=== PATIENT | male | born 1965 | race Caucasian/White ===

== ENCOUNTER 2018-08-01 16:25 | Emergency (ER) | payer BC ==
[2018-08-01 16:32] VITALS: BP 115/82; PULSE 87; TEMP 97; BMI 25.1
[2018-08-01] MEDS ORDERED: ACETAMINOPHEN 325 MG TABLET (FP) PO ONE (18:28)
[2018-08-01] MEDS ORDERED: TETANUS AND DIPHTHERIA TOXOID 0.5 ML DISP.SYRIN IM ONE (18:29)
--- NOTE | 2018-08-01 19:21 | PDOC ---
History of Present Illness - General Chief Complaint: Injury Stated Complaint: fell down bump head,pain shoulder Time Seen by Provider: 08/01/18 18:18 History Source: Patient, Spouse Exam Limitations: No Limitations - History of Present Illness Initial Comments: 08/01/18 19:15 52 yo M w/ no sig PMHx comes in c/o R shoulder, L elbow pain s/p trip and fall this afternoon at home while trying to avoid stepping on his cat. He tumbled down the stairs, hit his head, no LOC, no headache, no dizziness,no neck pain, no neck stiffness, no chest pain, no nausea, no vomiting, no pain anywhere else. Pt admits to having one drink prior to falling (2 drinks as per ). Tetanus status unknown. Pt not on anticoagulation. 08/01/18 19:25 Past History - Past Medical History Allergies/Adverse Reactions: Allergies Allergy/AdvReac Type Severity Reaction Status Date / Time No Known Allergies Allergy Verified 08/01/18 16:31 Home Medications: Ambulatory Orders Amlodipine Besylate [Norvasc -] 5 mg PO DAILY 01/30/13 Atorvastatin Ca [Lipitor] 20 mg PO HS 01/30/13 COPD: No HTN: Yes Hypercholesterolemia: Yes - Suicide/Smoking/Psychosocial Hx Smoking Status: Yes Smoking History: Current every day smoker Have you smoked in the past 12 months: Yes Number of Cigarettes Smoked Daily: 40 Information on smoking cessation initiated: No 'Breaking Loose' booklet given: 01/31/13 Hx Alcohol Use: Yes Drug/Substance Use Hx: No Substance Use Type: None Hx Substance Use Treatment: No Review of Systems - Review of Systems Able to Perform ROS?: Yes Constitutional: No: Chills, Fever, Malaise, Night Sweats HEENTM: No: Eye Pain, Recent change in vision, Throat Pain Respiratory: No: Cough, Shortness of Breath Cardiac (ROS): No: Chest Pain, Palpitations, Chest Tightness ABD/GI: No: Diarrhea, Nausea, Vomiting, Abdominal cramping : No: Dysuria, Hematuria Musculoskeletal: No: Back Pain Integumentary: No: Rash Neurological: No: Headache, Numbness, Dizziness Psychiatric: No: Change in Appetite Endocrine: No: Unexplained Weight Loss *Physical Exam - Vital Signs Last Vital Signs Temp Pulse Resp BP Pulse Ox 97 F L 87 18 115/82 99 08/01/18 16:27 08/01/18 16:27 08/01/18 16:27 08/01/18 16:27 08/01/18 16:27 - Physical Exam General Appearance: Yes: Nourished. No: Apparent Distress HEENT: positive: CHUN, Normal ENT Inspection, Normal Voice, Other ((+)R posterior parietal hematoma, no skin breaks, no racoon/clemente sign, no hemotympanum). negative: Pale Conjunctivae, Scleral Icterus (R), Scleral Icterus (L) Neck: positive: Supple. negative: Tender, Decreased range of motion, Tender midline Respiratory/Chest: positive: Lungs Clear, Normal Breath Sounds. negative: Respiratory Distress, Accessory Muscle Use Cardiovascular: positive: Regular Rhythm, Regular Rate Comments:: 08/01/18 19:23 Neuro exam A+Ox3 (person, place, time), normal sensorium. Visual mills: full to confrontation. Pupils: equal, round, and reactive to light. EOM: intact and smooth pursuit. No nystagmus. Sensation: V1, V2, and V3 normal b/l Facial strength: facial expression, shoulder shrug, and head turn normal. Hearing: grossly intact b/l Mouth: tongue protrudes midline and moves Left/Right equal b/l. Uvula rises symmetrically. Motor: UE and LE 5/5 diffusely. Sensation: light touch and pinprick WNL. Cerebellum: Srlrlw-pkfm-pcrije normal without dysmetria or intention tremor. Qimm-iy-balk wnl. No dysdiadodyskinesia. Gait: unassisted, steady, Romberg negative, and heel-walk normal. No atalgia, difficulty in ambulation or ataxia. no clinical signs of intoxication Gastrointestinal/Abdominal: positive: Normal Bowel Sounds, Soft. negative: Tender Musculoskeletal: positive: Normal Inspection, Other (R shoulder with mild tendenress diffusely (non focal), no assymetry, FROM, 5/5 strength, good cap refill. Upper extremities with good cap refill, equal pulses, good weapons and tactics instructor, no weakness. L elbow with mild abrasions, no bony tenderness, FROM, 5/5 strength, good distal pulse.). negative: CVA Tenderness, Decreased Range of Motion Extremity: positive: Normal Capillary Refill, Normal Inspection, Normal Range of Motion. negative: Tender, Pedal Edema Integumentary: positive: Normal Color, Dry. negative: Jaundice, Rash Moderate Sedation - Procedure Monitoring Vital Signs: Procedure Monitoring Vital Signs Temperature 97 F L 08/01/18 16:27 Pulse Rate 87 08/01/18 16:27 Respiratory Rate 18 08/01/18 16:27 Blood Pressure 115/82 08/01/18 16:27 O2 Sat by Pulse Oximetry (%) 99 08/01/18 16:27 ED Treatment Course - RADIOLOGY Radiology Studies Ordered: Category Date Time Status HEAD CT WITHOUT CONTRAST [CT] Stat CT Scan 08/01/18 18:29 Ordered SHOULDER-RIGHT [RAD] Stat Radiology 08/01/18 18:28 Taken Medical Decision Making - Medical Decision Making 08/01/18 19:24 52 yo M w/ R shoulder pain s/p trip and fall after having 2 drinks, not on ACs, no LOC, (+)scalp hematoma. NO clinical signs of intoxication now. WIll do head CT, R shoulder xray, give tetanus and reassess Tylenol ordered for pain Change of shift, care of patient signed over to SHERRY Amin who will reassess patient, follow up xrays/CT and decide on dispo plan *DC/Admit/Observation/Transfer Diagnosis at time of Disposition: Fall Qualifiers: Encounter type: initial encounter Qualified Code(s): W19.XXXA - Unspecified fall, initial encounter Shoulder injury Qualifiers: Encounter type: initial encounter Laterality: right Qualified Code(s): S49.91XA - Unspecified injury of right shoulder and upper arm, initial encounter - Referrals - Patient Instructions - Post Discharge Activity
--- NOTE | 2018-08-01 20:02 | PDOC ---
*Physical Exam - Vital Signs Last Vital Signs Temp Pulse Resp BP Pulse Ox 97 F L 87 18 115/82 99 08/01/18 16:27 08/01/18 16:27 08/01/18 16:27 08/01/18 16:27 08/01/18 16:27 Medical Decision Making - Medical Decision Making 08/01/18 20:01 Endorsed to me to follow labs and disposition 08/01/18 21:03 Patient Full Name: ALEXA PEREA Patient Accession No: [id number] Patient : [id number] Reason for Exam: HEAD INJURY Referring Physician: JENN RICK Patient Name: BRIT LIU THIS IS A PRELIMINARY REPORT FROM [facility] DATE OF SERVICE: 2018-08-01 20:08:28 IMAGES: 142 Exam: CT head without IV contrast. Clinical indication:Head injury. Comparison:None available. Technique: Axial unenhanced CT images from the skull base through the brain were obtained followed by coronal and sagital reformats. Findings: The visualized bony structures are unremarkable. There are soft tissue changes within the left maxillary sinus consistent with left maxillary sinusitis. There is some incomplete circumferential mucosal thickening within the right maxillary sinus suggesting chronic sinusitis. Otherwise, the visualized paranasal sinuses and mastoid air cells are clear. There is no evidence of intra-or extra-axial hemorrhage. The ventricles and basilar cisterns are unremarkable. There is no evidence of intracranial mass, acute infarct, or midline shift. Impression: 1. Findings consistent with maxillary sinusitis. 2. Otherwise, negative unenhanced CT of the brain. One or more of the following dose reduction techniques were used: automated exposure control, adjustment of the mA and/or kV according to patient size, use of iterative reconstructive technique. THIS DOCUMENT HAS BEEN ELECTRONICALLY SIGNED Vargas Keenan MD 08/01/2018 19:48 EST M.D. Please call [facility] [phone] ([phone]) with questions. INTERPRETING RADIOLOGIST: Vargas Keenan MD Electronically Signed: Aug 01, 2018 08:49PM EST shoulder xray with no acute finding. I discussed the physical exam findings, ancillary test results and final diagnoses with the patient. I answered all of the patient's questions. The patient was satisfied with the care received and felt comfortable with the discharge plan and treatment plan. The Patient agrees to follow up with the primary care physician within 24-72 hours. *DC/Admit/Observation/Transfer Diagnosis at time of Disposition: Fall Qualifiers: Encounter type: initial encounter Qualified Code(s): W19.XXXA - Unspecified fall, initial encounter Shoulder injury Qualifiers: Encounter type: initial encounter Laterality: right Qualified Code(s): S49.91XA - Unspecified injury of right shoulder and upper arm, initial encounter Closed head injury Qualifiers: Encounter type: initial encounter Qualified Code(s): S09.90XA - Unspecified injury of head, initial encounter - Discharge Dispostion Disposition: HOME Condition at time of disposition: Stable - Referrals Referrals: Earl Gutierrez DO [Staff Physician] - Manohar Sweet MD [Staff Physician] - - Patient Instructions Printed Discharge Instructions: How to Use a Sling, DI for Closed Head Injury, DI for Shoulder Pain Additional Instructions: Your Discharge Instructions: You must call primary care physician within 24 hours to arrange follow-up. Return to the Emergency Department with any new, persistent or worsening symptoms, for fever, chills, SOB, dizziness or any other concerning changes that may occur.Follow up with orthopedists. - Post Discharge Activity Forms/Work/School Notes: Back to Work
[2018-08-01] MEDS ORDERED: ACETAMINOPHEN 325 MG TABLET (FP) ONE (20:24)
[2018-08-01] MEDS ORDERED: DIPHTH,PERTUSS(ACELL),TET 0.5 ML DISP.SYRIN IM ONE (20:25)
== END 2018-08-01 21:34 | disposition home or self-care (01) ==
LOC: JER 16:25
DX: W10.8XXA Fall (on) (from) other stairs and steps, initial encounter (principal); Y93.89 Activity, other specified; Y92.018 Other place in single-family (private) house as the place of occurrence of the external cause; Y99.8 Other external cause status
CPT/HCPCS: 70450-TC; 73030-TC-RT-FY; 99281-25

== ENCOUNTER 2018-08-25 19:46 | Inpatient (IN) | payer BC ==
[2018-08-25 19:54] VITALS: BMI 25.0
[2018-08-25] MEDS ORDERED: LORazepam 2 MG/ML SDV VIAL ONE (20:12)
[2018-08-25 20:24] LABS: BASO % 0.9 % (0-2.0); EOS % 0.9 % (0-4.5); HEMATOCRIT 34.9 % (35.4-49); HEMOGLOBIN 12.3 GM/dL (11.7-16.9); LYMPH % 20.2 % (8-40); MCH 36.7 pg (25.7-33.7); MCHC 35.3 g/dl (32.0-35.9); MEAN PLT VOLUME 7.8 fl (7.5-11.1); MONO % 8.8 % (3.8-10.2); NEUT % 69.2 % (42.8-82.8); PLATELET COUNT 109 K/MM3 (134-434); RBC 3.35 M/mm3 (4.00-5.60); RDW 14.7 % (11.9-15.9); WHITE BLOOD COUNT 4.7 K/mm3 (4.0-10.0)
[2018-08-25] MEDS ORDERED: FOLIC ACID INJECTION - 1 MG, THIAMINE HCL 100 MG, MULTIVIT INJECTION ADULT 10 ML in SOD... IVPB ONE (20:35)
--- NOTE | 2018-08-25 20:35 | PDOC ---
History of Present Illness - General Chief Complaint: Altered Mental Status Stated Complaint: AMS Time Seen by Provider: 08/25/18 19:52 History Source: Family Exam Limitations: No Limitations - History of Present Illness Initial Comments: 08/25/18 20:35 52 year old man with a history of HLD, alcohol abuse (drinks 5 gin and tonics every day), alcohol withdrawal seizure x2 (4-5 days ago) and fall with head and L shoulder injury (3 weeks ago) who presents with episode of altered mental status just prior to arrival. The patient's came home and found the patient in the bathroom holding onto something and his hands were shaking. The patient was unresponsive to and she moved him out of the bathroom, however that patient hand's were still shaking and he was unreponsive and nonverbal until EMS arrived. The patient has pain medications as prescribed for recent fall but denies any recreational drug use, or prescription drug use. The patient denies any recent illness, n/v/d/c, abdominal pain, chest pain or shortness. notes that the patient has not been able to work for the past 3 weeks due to fall and injury and has been feeling more depressed and drinking more alcohol. Past History - Past Medical History Allergies/Adverse Reactions: Allergies Allergy/AdvReac Type Severity Reaction Status Date / Time No Known Allergies Allergy Verified 08/25/18 19:51 Home Medications: Ambulatory Orders Amlodipine Besylate [Norvasc -] 5 mg PO DAILY 01/30/13 Atorvastatin Ca [Lipitor] 20 mg PO HS 01/30/13 COPD: No HTN: Yes Hypercholesterolemia: Yes - Suicide/Smoking/Psychosocial Hx Smoking Status: Yes Smoking History: Never smoked Have you smoked in the past 12 months: No Number of Cigarettes Smoked Daily: 40 Information on smoking cessation initiated: No 'Breaking Loose' booklet given: 01/31/13 Hx Alcohol Use: No Drug/Substance Use Hx: No Substance Use Type: None Hx Substance Use Treatment: No *Physical Exam - Vital Signs Last Vital Signs Temp Pulse Resp BP Pulse Ox 97.9 F 112 H 16 150/87 96 08/25/18 19:51 08/25/18 19:51 08/25/18 19:51 08/25/18 19:51 08/25/18 19:51 - Physical Exam Comments: 08/25/18 22:22 GENERAL: At bedside the patient has leftward head turning and gaze preference, slow to respond but able to follow commands. Patient AOx2 HEAD: No signs of trauma, normocephalic, atraumatic EYES: pupils 2mm, sluggishly reactive to light, EOMI, sclera anicteric, conjunctiva clear ENT: oropharynx clear without exudates. Moist mucosa NECK: Normal ROM, supple LUNGS: No distress, speaks full sentences, clear to auscultation bilaterally HEART: Regular rate and rhythm, normal S1 and S2, no murmurs, rubs or gallops, peripheral pulses normal and equal bilaterally. ABDOMEN: Soft, nontender, normoactive bowel sounds. No guarding, no rebound. No masses EXTREMITIES : Normal inspection, Normal range of motion, no edema. No clubbing or cyanosis. NEUROLOGICAL: Cranial nerves II through XII grossly intact. Normal speech, normal gait, no focal sensorimotor deficits SKIN: Warm, Dry, normal turgor, no rashes or lesions noted Moderate Sedation - Procedure Monitoring Vital Signs: Procedure Monitoring Vital Signs Temperature 97.9 F 08/25/18 19:51 Pulse Rate 112 H 08/25/18 19:51 Respiratory Rate 16 08/25/18 19:51 Blood Pressure 150/87 08/25/18 19:51 O2 Sat by Pulse Oximetry (%) 96 08/25/18 19:51 ED Treatment Course - LABORATORY CBC & Chemistry Diagram: 08/25/18 20:00 08/25/18 20:01 - ADDITIONAL ORDERS Additional order review: Laboratory Results 08/25/18 20:13 POC Glucometer 128 08/25/18 08/25/18 20:13 20:00 RBC 3.35 L MCV 104.0 H MCHC 35.3 RDW 14.7 D MPV 7.8 Neutrophils % 69.2 Lymphocytes % 20.2 D Monocytes % 8.8 Eosinophils % 0.9 Basophils % 0.9 POC Glucometer 128 - RADIOLOGY Radiology Studies Ordered: Category Date Time Status HEAD CT WITHOUT CONTRAST [CT] Stat CT Scan 08/25/18 20:01 Ordered CXRPORT [CHEST X-RAY PORTABLE*] [RAD] Stat Radiology 08/25/18 20:01 Ordered Medical Decision Making - Medical Decision Making 08/25/18 21:19 52 year old man with a history of HLD, alcohol abuse (drinks 5 gin and tonics every day), alcohol withdrawal seizure x2 (4-5 days ago) and fall with head and L shoulder injury (3 weeks ago) who presents with episode of altered mental status just prior to arrival. The patient's came home and found the patient in the bathroom holding onto something and his hands were shaking. The patient was unresponsive to and she moved him out of the bathroom, however that patient hand's were still shaking and he was unreponsive and nonverbal until EMS arrived. The patient has pain medications as prescribed for recent fall but denies any recreational drug use, or prescription drug use. ED Course: Patient with L head turning and L gaze preference. Tonic-clonic seizure approx 30 seconds witnessed by this speech writer and attending ativan 2mg given head ct, ekg, cbc, cmp, mag, lactic, ammonia, cxr EKG: sinus tachycardia HR 112, narrow QRS, possible LAE, ST and T wave segments and morphology normal. NS, banana bag Ammonia 53 lactulose 20gm ordered 08/25/18 22:[address] Ayala made aware of patient, agrees with current workup. Will evaluate patient in AM. Patient endorsed to Dr. Lang, who will accept patient for admission. *DC/Admit/Observation/Transfer Diagnosis at time of Disposition: Alcohol withdrawal seizure Qualifiers: Complication of substance-induced condition: with unspecified complication Qualified Code(s): F10.239 - Alcohol dependence with withdrawal, unspecified - Discharge Dispostion Condition at time of disposition: Fair Decision to Admit order: Yes - Referrals - Patient Instructions - Post Discharge Activity
--- NOTE | 2018-08-25 20:46 | PDOC ---
Attending Attestation - HPI HPI: 08/25/18 21:06 The patient is a 52 year old male, with a significant PMH of high cholesterol, 2 episodes seizure from alcohol withdrawal, who was BIBA to the emergency department for evaluation of altered mental status. As per the , she found the patient in the bathroom not acting like himself, was non responsive to her, and had shaking uncontrollable hands. notes seeing him drink a gin and tonic before event. Upon EMS arrival, patient was alert and responsive to questions. Patient notes being depressed as he can not work due to mechanical fall 3 weeks ago. The patient denies chest pain, shortness of breath, headache and dizziness. Denies fever, chills, nausea, vomit, diarrhea and constipation. Denies dysuria, frequency, urgency and hematuria. Allergies: NKA Social history: HIstory of alcohol abuse PCP: Dr. Lang - Physicial Exam PE: 08/25/18 21:06 GENERAL: Awake, alert, and fully oriented, in no acute distress HEAD: No signs of trauma EYES: (+) leftward gaze. PERRLA, sclera anicteric, conjunctiva clear ENT: (+) Bite to lip, no active bleeding. (+)foaming at the mouth. Auricles normal inspection, hearing grossly normal, nares patent, oropharynx clear without exudates. Moist mucosa NECK: Normal ROM, supple, no lymphadenopathy, JVD, or masses LUNGS: Breath sounds equal, clear to auscultation bilaterally. No wheezes, and no crackles HEART: (+)Tachycardic. Regular rhythm, normal S1 and S2, no murmurs, rubs or gallops ABDOMEN: Soft, nontender, normoactive bowel sounds. No guarding, no rebound. No masses EXTREMITIES: Normal range of motion, no edema. No clubbing or cyanosis. No cords, erythema, or tenderness NEUROLOGICAL: (+) tonic clonic seizure. SKIN: Warm, Dry, normal turgor, no rashes or lesions noted. - Medical Decision Making 08/25/18 21:[address] Lang, awaiting call back. 08/25/18 22:[address] Lang. <Zee Calderon - Last Filed: 08/25/18 22:34> - Resident Resident Name: Kelsie Funes - ED Attending Attestation I have performed the following: I have examined & evaluated the patient, The case was reviewed & discussed with the resident, I agree w/resident's findings & plan, Exceptions are as noted - Medical Decision Making 08/25/18 20:46 I, Dr. Krista Rivas DO, attest that this document has been prepared under my direction and personally reviewed by me in its entirety. I further attest, that it accurately reflects all work, treatment, procedures and medical decision -making performed by me. 08/25/18 20:50 a/p: 52yo male with hx of etoh abuse presents for eval of altered ms and a shaking episode at home -pt actively seizing in the ED -bedside glu is 126 -pt with tonic clonic seizure -concern given etoh use recently and seizure today for withdrawal -also fell 3 weeks ago -will obtain head ct, labs, ekg -pt will need admission for seizure workup 08/25/18 21:36 pt with elevated ammonia pt now awake, no longer post ictal head ct negative pt states he did not drink etoh today non tremulous on exam, no tongue fasiculations PMD Dr. Lang 08/25/18 22:37 resident discussed the case with Dr. Lang who accepts pt to service resident discussed the case with Dr. Anne 08/25/18 22:39 elevated lactate from seizure activity will repeat <Krista Rivas - Last Filed: 08/25/18 23:28> Heart Score/ECG Review - ECG Intrepretation Comment:: 08/25/18 20:53 sinus tach at 112, nl axis, nl interval, q waves anterior leads which are age indeterminate, st depression lateral leads, abnl ekg <Krista Rivas - Last Filed: 08/25/18 23:28> Attestations - Attestations 08/25/18 21:06 Documentation prepared by Zee Calderon, acting as medical orderly for Krista Rivas DO. <Zee Calderon - Last Filed: 08/25/18 22:34>
[2018-08-25 21:12] LABS: URINE APPEARANCE CLEAR; URINE BILIRUBIN NEGATIVE (<2.0 mg/dL); URINE COLOR YELLOW; URINE GLUCOSE (UA) NEGATIVE (NEGATIVE); URINE KETONE NEGATIVE (NEGATIVE); URINE LEUK ESTERASE NEGATIVE (NEGATIVE); URINE NITRITE NEGATIVE (NEGATIVE); URINE PROTEIN 1+ (NEGATIVE)
[2018-08-25 21:21] LABS: URINE HYALINE CAST 3 /lpf; URINE MUCUS RARE
[2018-08-25 21:29] LABS: ALK PHOS 55 U/L (45-117); ANION GAP 10 MMOL/L (8-16); BILIRUBIN,TOTAL 0.7 mg/dL (0.2-1); BLOOD UREA NITROGEN 7 mg/dL (7-18); CALCIUM 8.3 mg/dL (8.5-10.1); CHLORIDE 104 mmol/L (98-107); CO2 23 mmol/L (21-32); CREATININE 1.1 mg/dL (0.55-1.3); GLUCOSE,RANDOM 122 mg/dL (74-106); MAGNESIUM 1.4 mg/dL (1.8-2.4); POTASSIUM 3.5 mmol/L (3.5-5.1); SGOT/AST 79 U/L (15-37); SGPT/ALT 25 U/L (13-61); SODIUM 136 mmol/L (136-145); TOT PROT 6.9 g/dl (6.4-8.2)
[2018-08-25] MEDS ORDERED: SODIUM CHLORIDE 0.9% 1000 ML INFUS.BAG IV ONE (21:31)
[2018-08-25] MEDS ORDERED: MAGNESIUM SULF 50% (8.12 MEQ/2 ML-1 GM VIAL) IVPB ONE (21:31)
[2018-08-25 21:32] LABS: COCAINE, UR NEGATIVE ng/ml (CUTOFF=300); METHADONE, UR NEGATIVE ng/ml (CUTOFF=300); OPIATES, URI NEGATIVE ng/ml (CUTOFF=300); PHENCYCLIDINE,URINE NEGATIVE ng/ml (CUTOFF=25); URINE AMPHETAMINES NEGATIVE ng/ml (CUTOFF=500); URINE BARBITURATES NEGATIVE ng/ml (CUTOFF=200); URINE BENZODIAZEPINES NEGATIVE ng/ml (CUTOFF=200)
[2018-08-25] MEDS ORDERED: LACTULOSE 20 GM/30 ML UDC (FOR ORAL USE ONLY) PO ONE (21:37)
[2018-08-25] MEDS ORDERED: LACTULOSE 20 GM/30 ML UDC (FOR ORAL USE ONLY) ONE (21:43)
[2018-08-25] MEDS ORDERED: MAGNESIUM 1GM/D5W - 1 GM/100 ML IVPB IVPB ONE (21:43)
[2018-08-25] MEDS ORDERED: SODIUM CHLORIDE 1,000 ML IV SCH (22:15)
--- NOTE | 2018-08-26 09:28 | CONSULT ---
Consult - text type - Consultation Consultation Note: Neurology History of Present Illness 52 year old man with a history of HLD, alcohol abuse (drinks 5 gin and tonics every day), alcohol withdrawal seizure x2 (4-5 days ago) and fall with head and L shoulder injury (3 weeks ago) who presents with episode of altered mental status just prior to arrival. The patient's came home and found the patient in the bathroom holding onto something and his hands were shaking. The patient was unresponsive to and she moved him out of the bathroom, however that patient hand's were still shaking and he was unreponsive and nonverbal until EMS arrived. The patient has pain medications as prescribed for recent fall but denies any recreational drug use, or prescription drug use. The patient denied any recent illness, n/v/d/c, abdominal pain, chest pain or shortness. notes that the patient has not been able to work for the past 3 weeks due to fall and injury and has been feeling more depressed and drinking more alcohol. Contacted by ER and discussed with staff, symptoms seem likely to etoh related seizure. Overnight, no acute events and has been seizure free. Neurologically without deficits. CT head without acute changes. Past History - Past Medical History Allergies/Adverse Reactions: Allergies Allergy/AdvReac Type Severity Reaction Status Date / Time No Known Allergies Allergy Verified 08/25/18 19:51 Home Medications: Ambulatory Orders Amlodipine Besylate [Norvasc -] 5 mg PO DAILY 01/30/13 Atorvastatin Ca [Lipitor] 20 mg PO HS 01/30/13 COPD: No HTN: Yes Hypercholesterolemia: Yes - Suicide/Smoking/Psychosocial Hx Smoking Status: Yes Smoking History: Never smoked Have you smoked in the past 12 months: No Number of Cigarettes Smoked Daily: 40 Information on smoking cessation initiated: No 'Breaking Loose' booklet given: 01/31/13 Hx Alcohol Use: No Drug/Substance Use Hx: No Substance Use Type: None Hx Substance Use Treatment: No *Physical Exam Vital Signs Period Temp Pulse Resp BP Sys/Day Pulse Ox Last 24 Hr 97.9 F-98.4 F 92-126 16-20 124-157/87-95 96-100 GENERAL: At bedside the patient has leftward head turning and gaze preference, slow to respond but able to follow commands. Patient AOx2 HEAD: No signs of trauma, normocephalic, atraumatic EYES: pupils 2mm, sluggishly reactive to light, EOMI, sclera anicteric, conjunctiva clear ENT: oropharynx clear without exudates. Moist mucosa NECK: Normal ROM, supple LUNGS: No distress, speaks full sentences, clear to auscultation bilaterally HEART: Regular rate and rhythm, normal S1 and S2, no murmurs, rubs or gallops, peripheral pulses normal and equal bilaterally. ABDOMEN: Soft, nontender, normoactive bowel sounds. No guarding, no rebound. No masses EXTREMITIES : Normal inspection, Normal range of motion, no edema. No clubbing or cyanosis. NEUROLOGICAL: Cranial nerves II through XII grossly intact. Normal speech, normal gait, no focal sensorimotor deficits SKIN: Warm, Dry, normal turgor, no rashes or lesions noted CBCD WBC 4.7 K/mm3 (4.0-10.0) 08/25/18 20:00 RBC 3.35 M/mm3 (4.00-5.60) L 08/25/18 20:00 Hgb 12.3 GM/dL (11.7-16.9) 08/25/18 20:00 Hct 34.9 % (35.4-49) L 08/25/18 20:00 MCV 104.0 fl (80-96) H 08/25/18 20:00 MCHC 35.3 g/dl (32.0-35.9) 08/25/18 20:00 RDW 14.7 % (11.9-15.9) D 08/25/18 20:00 Plt Count 109 K/MM3 (134-434) L D 08/25/18 20:00 MPV 7.8 fl (7.5-11.1) 08/25/18 20:00 CMP Sodium 136 mmol/L (136-145) 08/25/18 20:01 Potassium 3.5 mmol/L (3.5-5.1) 08/25/18 20:01 Chloride 104 mmol/L (98-107) 08/25/18 20:01 Carbon Dioxide 23 mmol/L (21-32) 08/25/18 20:01 Anion Gap 10 MMOL/L (8-16) 08/25/18 20:01 BUN 7 mg/dL (7-18) 08/25/18 20:01 Creatinine 1.1 mg/dL (0.55-1.3) 08/25/18 20:01 Creat Clearance w eGFR > 60 (>60) 08/25/18 20: Random Glucose 122 mg/dL (74-106) H 08/25/18 20:01 Calcium 8.3 mg/dL (8.5-10.1) L 08/25/18 20: Total Bilirubin 0.7 mg/dL (0.2-1) 08/25/18 20: AST 79 U/L (15-37) H 08/25/18 20: ALT 25 U/L (13-61) 08/25/18 20: Alkaline Phosphatase 55 U/L (45-117) 08/25/18 20: Total Protein 6.9 g/dl (6.4-8.2) 08/25/18 20: Albumin 4.0 g/dl (3.4-5.0) 08/25/18 20: CARDIAC ENZYMES Troponin I < 0.02 ng/ml (0.00-0.05) 08/25/18 20: CT head reviewed Medical Decision Making 52 year old man with a history of HLD, alcohol abuse (drinks 5 gin and tonics every day), alcohol withdrawal seizure x2 (4-5 days ago) and fall with head and L shoulder injury (3 weeks ago) who presents with episode of altered mental status just prior to arrival. The patient's came home and found the patient in the bathroom holding onto something and his hands were shaking. The patient was unresponsive to and she moved him out of the bathroom, however that patient hand's were still shaking and he was unreponsive and nonverbal until EMS arrived. The patient has pain medications as prescribed for recent fall but denies any recreational drug use, or prescription drug use. The patient denied any recent illness, n/v/d/c, abdominal pain, chest pain or shortness. notes that the patient has not been able to work for the past 3 weeks due to fall and injury and has been feeling more depressed and drinking more alcohol. Contacted by ER and discussed with staff, symptoms seem likely to etoh related seizure. Overnight, no acute events and has been seizure free. Neurologically without deficits. CT head without acute changes. Elevated ammonia , given lactulose. Neurologically at baseline.
[2018-08-26 09:33] VITALS: BP 135/91; PULSE 93; TEMP 98.2
--- NOTE | 2018-08-26 15:41 | EKG ---
Test Reason : Blood Pressure : / mmHG Vent. Rate : 112 BPM Atrial Rate : 112 BPM P-R Int : 152 ms QRS Dur : 100 ms QT Int : 332 ms P-R-T Axes : 072 063 051 degrees QTc Int : 453 ms POOR DATA QUALITY, INTERPRETATION MAY BE ADVERSELY AFFECTED SINUS TACHYCARDIA POSSIBLE LEFT ATRIAL ENLARGEMENT JUNCTIONAL ST DEPRESSION, PROBABLY NORMAL BORDERLINE ECG WHEN COMPARED WITH ECG OF 30-JAN-2013 15:29, NO SIGNIFICANT CHANGE WAS FOUND Confirmed by KLEBER BECKER MD ([id number]) on 08/26/2018 3:40:55 PM Referred By: Confirmed By:KLEBER BECKER MD
== END 2018-08-26 12:43 | disposition home or self-care (01) | DRG 897 ==
LOC: JER 19:46 → JERBED 22:30
PROVIDERS: ADMIT Internal Medicine; ATTEND Internal Medicine
DX: F10.239 Alcohol dependence with withdrawal, unspecified (principal); R56.9 Unspecified convulsions; E78.5 Hyperlipidemia, unspecified
CPT/HCPCS: 36415; 70450-TC; 71045-TC-FY; 80053; 80307; 81003; 81015; 82140; 82962; 83605; 83735; 84484; 85025; 93005; 93010; 99283-25; J7030

== ENCOUNTER 2019-05-10 22:37 | Emergency (ER) | payer BC ==
[2019-05-10 23:02] VITALS: BP 117/77; PULSE 81; TEMP 98.1; BMI 25.0
--- NOTE | 2019-05-11 00:16 | PDOC ---
History of Present Illness - General Chief Complaint: Pain Stated Complaint: PAIN Time Seen by Provider: 05/10/19 23:56 History Source: Patient - History of Present Illness Initial Comments: 05/11/19 00:11 53 year old male s/p blood draw with pcp c/o pulsation noted at the brachial area. no increase swelling or erythema to the site. denies pain. patient is worried about it since recent loss of an uncle from "heart attack." denies chest pain, nausea , vomiting Past History - Past Medical History Allergies/Adverse Reactions: Allergies Allergy/AdvReac Type Severity Reaction Status Date / Time No Known Allergies Allergy Verified 08/25/18 19:51 Home Medications: Ambulatory Orders Amlodipine Besylate [Norvasc -] 5 mg PO DAILY 01/30/13 Atorvastatin Ca [Lipitor] 20 mg PO HS 01/30/13 COPD: No HTN: Yes Hypercholesterolemia: Yes - Psycho Social/Smoking Cessation Hx Smoking Status: Yes Smoking History: Never smoked Have you smoked in the past 12 months: No Number of Cigarettes Smoked Daily: 40 'Breaking Loose' booklet given: 01/31/13 Hx Alcohol Use: No Drug/Substance Use Hx: No Substance Use Type: None Hx Substance Use Treatment: No *Physical Exam - Vital Signs Last Vital Signs Temp Pulse Resp BP Pulse Ox 98.1 F 81 20 117/77 100 05/10/19 22:54 05/10/19 22:54 05/10/19 22:54 05/10/19 22:54 05/10/19 22:54 - Physical Exam General Appearance: Yes: Appropriately Dressed Extremity: positive: Normal Capillary Refill, Normal Inspection, Normal Range of Motion, Other (no erythema to left antecubital area, + brachial pulse and distal pulse. no swelling o arm) Integumentary: positive: Normal Color, Dry, Warm Neurologic: positive: Fully Oriented, Alert Medical Decision Making - Medical Decision Making 05/11/19 00:13 patient is worried about the pulsation noticed on the brachial pulse. will d/c home Discharge - Discharge Information Problems reviewed: Yes Clinical Impression/Diagnosis: Worried well, Normal physical exam Disposition: HOME - Follow up/Referral Referrals: Roland Lang MD [Primary Care Provider] - Call tomorrow - Patient Discharge Instructions Patient Printed Discharge Instructions: DI for Physical Exam -- Adult Additional Instructions: follow up with your doctor - Post Discharge Activity Work/Back to School Note: Back to Work
== END 2019-05-11 00:20 | disposition home or self-care (01) ==
LOC: JER 22:37
DX: Z03.89 Encounter for observation for other suspected diseases and conditions ruled out (principal); I10 Essential (primary) hypertension; E78.00 Pure hypercholesterolemia, unspecified
CPT/HCPCS: 99281-25

== ENCOUNTER 2020-11-10 17:03 | Emergency (ER) | payer BC ==
[2020-11-10 17:11] VITALS: BMI 21.4
[2020-11-10 18:22] LABS: VENOUS BASE EXCESS -0.2 mmol/L (-2-2); VENOUS O2 SATURATION 18.4 % (70-80); VENOUS PCO2 47.8 mmHg (38-52); VENOUS PH 7.349 (7.310-7.410)
[2020-11-10 18:28] LABS: HEMATOCRIT 21.8 % (35.4-49); HEMOGLOBIN 7.8 GM/dL (11.7-16.9); MCH 39.9 pg (25.7-33.7); MCHC 35.6 g/dl (32.0-35.9); RBC 1.95 M/mm3 (4.00-5.60); RDW 25.5 % (11.9-15.9); WHITE BLOOD COUNT 8.1 K/mm3 (4.0-10.0)
[2020-11-10 18:29] LABS: INR 1.23 (0.83-1.09); PROTHROMBIN TIME (PATIENT) 14.8 SEC (9.7-13.0)
[2020-11-10 18:32] LABS: ACTIVATED PTT 30.8 SECONDS (25.2-36.5)
[2020-11-10 18:40] LABS: CHLORIDE 97 mmol/L (98-107); SODIUM 132 mmol/L (136-145)
[2020-11-10 18:42] LABS: BLOOD UREA NITROGEN 10.9 mg/dL (7-18); CO2 25 mmol/L (21-32); LIPASE 172 U/L (73-393)
[2020-11-10 18:43] LABS: GLUCOSE,RANDOM 107 mg/dL (74-106)
[2020-11-10 18:45] LABS: CREATININE 1.8 mg/dL (0.55-1.3); SGOT/AST 50 U/L (15-37); SGPT/ALT 21 U/L (13-61)
[2020-11-10 18:48] LABS: ALK PHOS 229 U/L (45-117)
[2020-11-10] MEDS ORDERED: SODIUM CHLORIDE 0.9% 500 ML INFUS.BAG IV ONE (18:52)
[2020-11-10 18:54] LABS: ANISOCYTOSIS 3+; MACROCYTOSIS 2+; OVALOCYTE 1+; PLATELET ESTIMATE DECREASED; TARGET CELLS 1+
[2020-11-10 18:57] LABS: MEAN PLT VOLUME 8.8 fl (7.5-11.1); PLATELET COUNT 54 K/MM3 (134-434)
[2020-11-10 18:58] LABS: ANION GAP 10 MMOL/L (8-16); BILIRUBIN,DIRECT 22.4 mg/dL (0.0-0.2); BILIRUBIN,TOTAL 23.7 mg/dL (0.2-1)
[2020-11-10] MEDS ORDERED: POTASSIUM CHLORIDE TABS 20 MEQ TABLET.ER (FP) PO ONE ×2 (19:13→19:19)
[2020-11-10 19:39] LABS: HIV INTERPRETATION NEGATIVE (NEGATIVE)
[2020-11-10 19:55] LABS: MAGNESIUM 1.4 mg/dL (1.8-2.4)
[2020-11-10 20:35] LABS: PH,URINE 6.5 (5.0-8.0); URINE APPEARANCE CLOUDY; URINE BILIRUBIN 3+ (NEGATIVE); URINE COLOR DK YELLOW; URINE GLUCOSE (UA) NEGATIVE (NEGATIVE); URINE KETONE NEGATIVE (NEGATIVE); URINE LEUK ESTERASE NEGATIVE (NEGATIVE); URINE NITRITE NEGATIVE (NEGATIVE); URINE PROTEIN NEGATIVE (NEGATIVE)
[2020-11-10 20:42] LABS: METHADONE, UR NEGATIVE ng/ml (CUTOFF=300); OPIATES, URI NEGATIVE ng/ml (CUTOFF=300); PHENCYCLIDINE,URINE NEGATIVE ng/ml (CUTOFF=25); URINE AMPHETAMINES NEGATIVE ng/ml (CUTOFF=500); URINE BARBITURATES NEGATIVE ng/ml (CUTOFF=200); URINE BENZODIAZEPINES NEGATIVE ng/ml (CUTOFF=200)
[2020-11-10 20:43] LABS: COCAINE, UR NEGATIVE ng/ml (CUTOFF=300)
[2020-11-10] MEDS ORDERED: KCL 10 MEQ IVPB 10 MEQ/100 ML INFUS.BAG IVPB SCH (20:45)
[2020-11-10 21:36] VITALS: TEMP 98.9
[2020-11-10] MEDS ORDERED: LIDOCAINE 5% TOPICAL PATCH TP ONE (21:45)
[2020-11-10] MEDS ORDERED: ACETAMINOPHEN 325 MG TABLET (FP) PO ONE (21:45)
[2020-11-10] MEDS ORDERED: MAGNESIUM SULF 50% (8.12 MEQ/2 ML-1 GM VIAL) IVPB ONE (21:45)
[2020-11-10] MEDS ORDERED: ACETAMINOPHEN 325 MG TABLET (FP) ONE (21:54)
[2020-11-10] MEDS ORDERED: MAGNESIUM SULFATE IN WATER 2 GM/50 ML IVPB IVPB ONE (21:54)
[2020-11-10] MEDS ORDERED: LIDOCAINE 5% TOPICAL PATCH ONE (21:54)
[2020-11-10] MEDS ORDERED: KCL 10 MEQ IVPB 10 MEQ/100 ML INFUS.BAG IVPB ONE (21:55)
[2020-11-10] MEDS ORDERED: LIDOCAINE PATCH REMOVAL MC SCH (22:00)
[2020-11-11 01:42] VITALS: BP 117/87; PULSE 86
[2020-11-13 14:07] LABS: HEP B CORE AB, TOT Negative (Negative)
== END 2020-11-11 01:52 | disposition short-term general hospital (02) ==
LOC: JER 17:03
PROC: 3E033GC Introduction of Other Therapeutic Substance into Peripheral Vein, Percutaneous Approach (ICD-10-PCS; principal; 2020-11-10)
PROC: 3E033GC Introduction of Other Therapeutic Substance into Peripheral Vein, Percutaneous Approach (ICD-10-PCS; 2020-11-10)
DX: R17 Unspecified jaundice (principal); R18.8 Other ascites; E87.6 Hypokalemia; E83.42 Hypomagnesemia
CPT/HCPCS: 36415; 76705-TC; 80053; 80074; 80307; 81003; 82140; 82248; 82272; 82803; 83690; 83735; 85025; 85610; 85730; 86704; 86706; 86707; 86708; 86709; 87040; 87086; 87340; 87389; 93005; 93010; 99285-25; C9803; U0003; U0005

== ENCOUNTER 2020-12-14 04:26 | Day surgery (SDC) | payer BC ==
[2020-12-13 17:07] VITALS: BMI 25.5
[~2020-12-14 04:26] MED LIST: IOHEXOL 180 MG/1 ML ML IJ ONE; LIDOCAINE HCL 1% PRESERVATIVE FREE - 30ML VIAL IJ ONE
[2020-12-14] MEDS ORDERED: BUPIVACAINE HCL/PF 0.75% 10 ML VIAL ONE ×2 (07:32→12:57)
[2020-12-14] MEDS ORDERED: BUPIVACAINE HCL/PF 0.75% 10 ML VIAL NR ONE (12:20)
[2020-12-14] MEDS ORDERED: IOHEXOL 180 MG/1 ML ML IJ ONE (12:20)
[2020-12-14 12:53] VITALS: BP 127/79; PULSE 94; TEMP 97.7
== END 2020-12-14 13:04 | disposition home or self-care (01) ==
LOC: JASU-SURG 04:26
PROVIDERS: ATTEND Pain Medicine Pain Medicine
PROC: BR15YZZ Fluoroscopy of Thoracic Facet Joint(s) using Other Contrast (ICD-10-PCS; 2020-12-14)
PROC: 3E0T3BZ Introduction of Anesthetic Agent into Peripheral Nerves and Plexi, Percutaneous Approach (ICD-10-PCS; principal; 2020-12-14 12:30)
DX: M47.814 Spondylosis without myelopathy or radiculopathy, thoracic region (principal)
CPT/HCPCS: 76000-TC-FY